=== PATIENT | male | born 1945 | race Caucasian/White ===

== ENCOUNTER 2020-05-19 16:46 | Outpatient (RCR) | payer MEDICARE, SELFPAY ==
[2018-12-21 12:59] VITALS: BMI 29.5
[2020-05-19] MEDS: COVID-19 VACC, MRNA(PFIZER)/PF 30 MCG/0.3 ML SYRINGE IM (13:10)
[2020-06-10] MEDS: COVID-19 VACC, MRNA(PFIZER)/PF 30 MCG/0.3 ML SYRINGE IM (10:40)
== END 2020-08-19 23:59 ==
LOC: IMMUN 16:46
PROVIDERS: PCP Family Medicine; Referring Provider Family Medicine; Visit Provider Family Medicine
DX: Z23 Encounter for immunization (principal)
CPT/HCPCS: 0001A; 0002A; 91300

== ENCOUNTER 2021-08-07 19:44 | Emergency (ER) | payer MEDICARE, SELFPAY ==
[2021-08-07] VITALS (7 sets, daily range): BP systolic 108–128; BP diastolic 56–77; PULSE 65–80; RESP 15–22; TEMP 36.4–36.6; O2SAT 96–97; BMI 32.7
--- NOTE | 2021-08-07 20:03 | EKG12_ITS ---
Test Reason : DYSRHYTHMIA Blood Pressure : / mmHG Vent. Rate : 061 BPM Atrial Rate : 061 BPM P-R Int : 192 ms QRS Dur : 138 ms QT Int : 430 ms P-R-T Axes : 014 -81 030 degrees QTc Int : 432 ms Normal sinus rhythm Right bundle branch block Left anterior fascicular block Bifascicular block Abnormal ECG Confirmed by RICH SMYTH, JUAN ANTONIO ([id number]), order editor SHILPA WASHINGTON ([id number]) on 08/11/2021 1:08:39 PM Referred By: AYESHA Confirmed By:JUAN ANTONIO VILLANUEVA MD
--- NOTE | 2021-08-07 20:04 | EX.ED.DYSGE1 ---
HPI History of Present Illness Chief Complaint: Dizziness Narrative Narrative: 76-year-old male presenting with an episode of near syncope. The patient states that he was on the toilet for about 15 minutes and he states he had diarrhea. Patient states when he stood up he became lightheaded pelvis where he could not go she is currently lightheaded. Patient fell but did not hit his head or lose consciousness. He feels generally weak. He denies chest pain or shortness of breath. He does admit to nausea. He has not vomited. He states that he went to his dentist and was prescribed amoxicillin today for prophylaxis for possible dental infection and for upcoming root canal. Patient states that prior to starting antibiotics he felt well. Denies urinary complaints or constipation. Patient not on any anticoagulation. He denies black or bloody stools. PFSH PFS Home Medications multivitamin 1 cap PO DAILY 12/21/18 [History Last Taken Unknown] omega 4-dav-wxu-fish oil 100 mg-160 mg-1,000 mg capsule 1 cap PO DAILY cap 12/21/18 [History Last Taken Unknown] amoxicillin 500 mg PO BID 08/07/21 [History Last Taken 08/07/21] Allergy/AdvReac Type Severity Reaction Status Date / Time No Known Allergies Allergy Unverified 08/07/21 19:48 Family History Mother Diabetes Father Heart disease Surgical History S/P hernia repair Status post carpal tunnel release Social History Smoking Status: Never smoker alcohol intake: never ROS ROS ED Constitutional Constitutional ED: Denies chills or fever(s) Eyes Eyes: Denies blurry vision or diplopia ENT ENT ED: Denies rhinorrhea or sore throat Cardiovascular Cardiovascular: Denies chest pain or palpitations Respiratory/Chest Respiratory/Chest: Denies cough or dyspnea Gastrointestinal Gastrointestinal: Reports diarrhea and nausea; Denies abdominal pain, constipation or melena Genitourinary Genitourinary ED: Denies dysuria or hematuria Musculoskeletal Musculoskeletal: Denies arthralgias, back pain, myalgias or neck pain Integumentary Denies rash Neurologic Neurologic: Denies headache(s), paresthesias or weakness Psychiatric Psychiatric: Denies anxiety or depression EXAM Physical Exam Const Vital Signs: 08/07/21 19:45 08/07/21 20:36 08/07/21 20:45 Temperature 97.6 F L 97.8 F Temperature Source Oral Oral Pulse Rate 65 70 72 Respiratory Rate 15 17 17 Respiratory Effort Respiratory Pattern Blood Pressure 118/77 128/72 H 108/76 Blood Pressure Mean 90 90 86 Pulse Ox 96 96 97 Oxygen Delivery Method Room Air Room Air Room Air 08/07/21 20:48 08/07/21 21:37 08/07/21 22:00 Temperature 97.7 F L Temperature Source Oral Pulse Rate 72 73 Respiratory Rate 17 22 H Respiratory Effort Normal Non-Labored Respiratory Pattern Normal Blood Pressure 108/76 110/58 L Blood Pressure Mean 86 75 Pulse Ox 97 96 Oxygen Delivery Method Room Air Room Air 08/07/21 22:28 Temperature Temperature Source Pulse Rate 80 Respiratory Rate 19 H Respiratory Effort Respiratory Pattern Blood Pressure 122/56 H Blood Pressure Mean 78 Pulse Ox 97 Oxygen Delivery Method Room Air Positive well nourished General Appearance ED: NAD; Negative for pallor HEENT Reports moist mucous membranes Negative for trauma Eyes PERRL and EOMs intact bilaterally General Eye ED: Negative for pale conjunctiva or scleral icterus Resp normal respiratory effort and clear to auscultation bilaterally Cardio regular rate and regular rhythm GI normal to inspection, nondistended, normoactive bowel sounds Neuro oriented x3, CN's II-XII intact bilaterally and no sensory deficits noted Sensorium / Orientation: alert Motor Exam: strength 5/5 throughout Psych mental status grossly normal Skin no rashes or lesions noted General Skin Exam: Negative for jaundice or pallor MDM MDM MDM Narrative Medical decision making narrative: Patient with near syncopal episode after having diarrhea x1. He states he was on the commode for about 15 minutes prior to standing up and becoming diaphoretic, lightheaded, weak, and falling. He denies head injury or LOC. Patient states he is currently on amoxicillin day 1 for dental infection. He is planning to have a root canal. EKG obtained on arrival shows a normal sinus rhythm with a ventricular to 61 bpm with a right bundle branch block. Chest x-ray on my interpretation shows no acute cardiopulmonary process and the radiologist does agree. CBC shows no leukocytosis. Hemoglobin stable at 17.9. Platelets slightly low at 146. There is no comparison lab work as the patient has not been here before. Creatinine is 1.47. BUN/creatinine ratio is normal. LFTs within normal limits. Patient initially given 4 mg of Zofran IV and a liter of IV fluids. Patient was ambulated and states he felt fine. His near syncope symptoms are likely due to vasovagal response. I will give him prescription for Zofran for home because he had some nausea on arrival. He does not appear to have a medication allergy to amoxicillin and will likely need to continue this in order to have his root canal. Patient was counseled to use a probiotic at home while on antibiotics. He is given return precautions. Impression: 1. near syncope 2. Nausea 3. Diarrhea Lab Data Attestation: I reviewed the patient's lab results. Labs: Laboratory Results - last 24 hr 08/07/21 08/07/21 20:08 20:08 WBC 10.9 RBC 5.28 Hgb 17.9 H Hct 50.8 MCV 96.2 H MCH 33.9 H MCHC 35.2 RDW Std Deviation 44.0 H RDW Coeff of Niesha 12.4 Plt Count 146 L MPV 9.8 Immature Gran % (Auto) 0.500 Neut % (Auto) 89.1 H Lymph % (Auto) 6.2 L [place] % (Auto) 2.9 Eos % (Auto) 1.2 Baso % (Auto) 0.1 Absolute Neuts (auto) 9.7 H Absolute Lymphs (auto) 0.68 L Nucleated RBC % 0 Sodium 140 Potassium 4.0 Chloride 107 Carbon Dioxide 28.0 Anion Gap 5 BUN 23 H Creatinine 1.47 H Estim Creat Clear Calc 43.45 Est GFR (MDRD) Af Amer 60 Est GFR (MDRD) Non-Af 49 L BUN/Creatinine Ratio 15.6 Glucose 99 Calcium 9.5 Total Bilirubin 0.60 AST 30 ALT 44 Alkaline Phosphatase 60 Troponin I High Sens < 3 L Total Protein 8.2 Albumin 4.0 Globulin 4.2 Albumin/Globulin Ratio 1.0 Radiography Diagnostic Testing: Clinical Impression(s) from Imaging Studies Chest X-Ray 08/07/21 20:15 IMPRESSION: No radiographic evidence of acute cardiopulmonary disease. Electronically Signed: June Garduno MD at 20:30 EDT , Discharge Plan Triage Chief Complaint: Dizziness ED Provider: Jordin Ignacio Dx/Rx/DC Orders Instructions: ED Diarrhea, Unknown Cause, ED Near-Fainting- Vagal Reaction Prescriptions: No Action Fish Oil 100-160-1,000 mg capsule 1 cap PO DAILY RF: 0 multivitamin capsule capsule 1 cap PO DAILY RF: 0 amoxicillin 500 mg Capsule 500 mg PO BID RF: 0 Primary Care Provider: Girma Duncan Referrals: Girma Duncan MD [Primary Care Provider] - Disposition Disposition: Home, Self Care
[2021-08-07] MEDS: 0.9% Normal Saline 1,000 ML 1000 ML IV (20:10)
[2021-08-07] MEDS: Ondansetron 4 MG/2 ML Vial IV (20:11)
--- NOTE | 2021-08-07 20:15 | RAD_ITS ---
EXAM: XR CHEST, 1 VIEW CLINICAL INDICATION: syncope TECHNIQUE: Frontal view of the chest. This report was created using [employer] report generation technology. COMPARISON: None. FINDINGS: LUNGS AND PLEURAL SPACES: Unremarkable. No consolidation or edema. No pneumothorax. No effusion. HEART: Unremarkable. Cardiac silhouette not enlarged. MEDIASTINUM: Central airways and mediastinal contour are unremarkable. BONES/JOINTS: Unremarkable. Minimal thoracic spondylosis. SOFT TISSUES: Unremarkable. RAD/Chest 1 View (Portable) IMPRESSION: No radiographic evidence of acute cardiopulmonary disease. Electronically Signed: June Garduno MD at 20:30 EDT ,
[2021-08-07 20:19] LABS: Absolute Lymphocyte Count 0.68 X10^3/uL (0.83-4.51); Absolute Neutrophil Count 9.7 X10^3/uL (2.0-7.7); Basophil# 0.01 X10^3/uL; Basophil% 0.1 % (0-1); Eosinophil# 0.13 X10^3/uL; Eosinophils% 1.2 % (0-5); Hematocrit 50.8 % (40-54); Hemoglobin 17.9 g/dL (13.0-16.5); Lymphocyte # 0.68 X10^3/ul (0.83-4.51); Lymphocyte % 6.2 % (19-41); Mean Corp Hgb Conc 35.2 g/dL (32-36); Mean Corpuscular Hgb 33.9 pg (27.0-32.0); Mean Corpuscular Volume 96.2 fL (80-94); Mean Platelet Vol. 9.8 fl (6.2-12.0); Monocyte# 0.32 X10^3/uL; Monocyte% 2.9 % (0-10); NRBC Flagged by Analyzer 0 % (0-5); Neutrophil # 9.74 X10^3/uL (2.7-7.7); Neutrophil % 89.1 % (47-70); Platelet Count 146 K/mm3 (150-450); RBC Distribution Width CV 12.4 % (11.6-14.6); Red Blood Count 5.28 M/mm3 (4.6-6.2); White Blood Count 10.9 K/mm3 (4.4-11.0)
[2021-08-07 20:38] LABS: AST(SGOT) 30 U/L (15-37); Alanine Aminotransfer ALT/SGPT 44 U/L (16-61); Alkaline Phosphatase 60 U/L (45-117); Anion Gap 5 (5-15); BUN 23 mg/dL (7-18); BUN/Creat Ratio 15.6 RATIO (10-20); Calcium,Total 9.5 mg/dL (8.5-10.1); Chloride 107 mmol/L (98-107); Creatinine, Serum 1.47 mg/dL (0.70-1.30); EST Glomerular Filtration Rate 49 mL/min (>60); Est Glom Filt Rate - Afr Amer 60 mL/min (>60); Estimated Creatinine Clearance 43.45 ml/min; Globulin 4.2 g/dL (2.2-4.2); Glucose 99 mg/dL (74-106); Protein, Total 8.2 g/dL (6.4-8.2); Sodium Level 140 mmol/L (136-145); Troponin-I HS (w/2H Reflex) < 3 pg/mL (3.0-78.0)
[2021-08-07 22:14] LABS: Reflex Troponin-HS? (from REC) Y
== END 2021-08-07 22:51 | disposition home or self-care (01) ==
PROVIDERS: Emergency Provider Student in an Organized Health Care Education/Training Program; PCP Family Medicine; Visit Provider Student in an Organized Health Care Education/Training Program
DX: R55 Syncope and collapse (principal); R19.7 Diarrhea, unspecified; R11.0 Nausea; K04.7 Periapical abscess without sinus
CPT/HCPCS: 71045; 80053; 84484; 85025; 93005; 96361; 96374; 99285; J7030; A4216; J2405